=== PATIENT | male | born 2000 | race Two or more races ===

== ENCOUNTER 2022-03-15 19:26 | Emergency (ER) | payer MEDICAID ==
[~2022-03-15] VITALS: Ht 177.8 cm; Wt 72.7 kg
[2022-03-15] MEDS ORDERED: ondansetron 4mg rapidly disintigrating tab PO ONE (19:45)
[2022-03-15] MEDS ORDERED: normal saline 1000ML IV soln IVB ONE (19:45)
[2022-03-15 20:05] LABS: BASOPHILS % (AUTO) 0.4 % (0-1); EOSINOPHILS % (AUTO) 0.2 % (0-6); NEUTROPHILS # (AUTO) 2.8 X10'3 (1.8-7.7); WHITE BLOOD COUNT 4.6 X10'3 (4.5-11.0)
[2022-03-15 20:07] LABS: HEMATOCRIT 48.3 % (42.0-52.0); HEMOGLOBIN 16.5 g/dl (14.0-17.9); LYMPHOCYTES % (AUTO) 20.8 % (21-51); MEAN CORPUSCULAR HEMOGLOBIN 33.7 PG (27.0-31.0); MEAN CORPUSCULAR HGB CONC 34.2 g/dL (33.0-36.5); MEAN CORPUSCULAR VOLUME 98.6 FL (78-98); MONOCYTES # (AUTO) 0.8 X10'3 (0-0.9); MONOCYTES % (AUTO) 18.2 % (2-12); NEUTROPHILS % (AUTO) 60.4 % (42-75); PLATELET COUNT 221 X10'3 (140-440); RED CELL DISTRIBUTION WIDTH 13.2 % (11.5-14.5)
[2022-03-15 20:34] LABS: PLATELET ESTIMATE NORMAL; TOTAL CELLS COUNTED 100
[2022-03-15 20:37] LABS: ALANINE AMINOTRANSFERASE 21 U/L (12-78); ALBUMIN 4.1 G/DL (3.4-5.0); ALBUMIN/GLOBULIN RATIO 1.2 (1.1-1.5); ALKALINE PHOSPHATASE 86 IU/L (20-180); ANION GAP 12 (8-16); ASPARTATE AMINO TRANSFERASE 21 U/L (10-37); BILIRUBIN,TOTAL 0.4 MG/DL (0.1-1.0); BLOOD UREA NITROGEN 12 MG/DL (7-18); BUN/CREATININE RATIO 10.5 (5.4-32.0); CALCIUM 8.9 MG/DL (8.5-10.1); CHLORIDE 102 MMOL/L (99-107); CREATININE 1.14 MG/DL (0.60-1.10); GLUCOSE 80 MG/DL (70-104); POTASSIUM 4.4 MMOL/L (3.5-5.1); SODIUM 141 MMOL/L (135-145); TOTAL CARBON DIOXIDE 26.8 MMOL/L (24-32); TOTAL PROTEIN 7.5 G/DL (6.4-8.2); eGFR 82 ML/MIN
[2022-03-15 21:20] VITALS: BP 133/88
[2022-03-15] MEDS: normal saline 1000ML IV soln IVB ONE ×2 (21:30→21:32)
[2022-03-15] MEDS ORDERED: ibuprofen 200mg tablet PO ONE (21:55)
[2022-03-15] MEDS ORDERED: NIRM1TAB PO (22:58)
[2022-03-15] MEDS ORDERED: ALBU8HFA PO (22:58)
== END 2022-03-15 23:35 | disposition home or self-care (01) ==
LOC: ER 19:27
DX: U07.1 COVID-19 (principal); R51.9 Headache, unspecified; R11.2 Nausea with vomiting, unspecified; J45.909 Unspecified asthma, uncomplicated; F12.90 Cannabis use, unspecified, uncomplicated; Z56.0 Unemployment, unspecified; Z88.0 Allergy status to penicillin; Z79.899 Other long term (current) drug therapy
CPT/HCPCS: 36415; 71045; 80053; 85007; 85025; 87635; 99284; C9803; J7030; 96360

== ENCOUNTER 2022-04-29 19:51 | Emergency (ER) | payer SELFPAY ==
[~2022-04-29 19:51] MED LIST: NIRM1TAB PO
== END 2022-04-29 21:45 | disposition left against medical advice (07) ==
LOC: ER 19:52
DX: M79.646 Pain in unspecified finger(s) (principal); Z53.21 Procedure and treatment not carried out due to patient leaving prior to being seen by health care provider

== ENCOUNTER 2022-05-19 11:54 | Emergency (ER) | payer MEDICAID ==
[~2022-05-19] VITALS: Ht 177.8 cm; Wt 74.7 kg
[2022-05-19 12:13] VITALS: BP 129/73
[2022-05-19 14:25] LABS: CLARITY,URINE SLIGHTLY CLOUDY (Clear); COLOR,URINE YELLOW (Yellow); GLUCOSE, URINE NEGATIVE (Neg); KETONES,URINE TRACE mg/dl (Neg); LEUKOCYTE ESTERASE ,URINE TRACE (Neg); NITRITES, URINE NEGATIVE (Neg); OCCULT BLOOD,URINE NEGATIVE (Neg); PH,URINE 6.5 (4.8-8.0); PROTEIN,URINE NEGATIVE (Neg); UROBILINOGEN,URINE 0.2 E.U/dL (0.2-1.0)
[2022-05-19 14:46] LABS: UA COLLECTION TYPE CLN CATCH MIDSTREAM
[2022-05-19 14:47] LABS: WBC,URINE 30-50 /HPF (0-4)
[2022-05-19 14:48] LABS: RBC,URINE NONE SEEN /HPF (0-2)
[2022-05-19 14:49] LABS: BACTERIA,URINE FEW /HPF (Neg)
[2022-05-19 14:50] LABS: MUCUS STRANDS MODERATE /LPF (Neg); SQUAMOUS EPITHELIAL CELL,UR FEW /LPF (FEW)
[2022-05-19] MEDS ORDERED: DOXY100C43 PO (14:53)
== END 2022-05-19 15:02 | disposition home or self-care (01) ==
LOC: ER 11:55
DX: N39.0 Urinary tract infection, site not specified (principal); R31.9 Hematuria, unspecified; N50.82 Scrotal pain; F12.90 Cannabis use, unspecified, uncomplicated; Z56.0 Unemployment, unspecified; Z88.0 Allergy status to penicillin; Z79.2 Long term (current) use of antibiotics; Z79.899 Other long term (current) drug therapy
CPT/HCPCS: 76870; 81001; 87088; 93976; 99284